=== PATIENT | male | born 1990 | race Caucasian/White ===

== ENCOUNTER → 2021-08-17 | Outpatient (CLI) | payer OTHER ==
[~2021-08-17] MED LIST: CATHETER FLUSH 10 ML SYR IVP PRN
--- NOTE | 2021-08-17 14:55 | Diagnostic Imaging Report ---
INDICATION: Right upper quadrant abdominal pain. COMPARISON: None. RADIOPHARMACEUTICAL: 5.39 mCi technetium 99 M Choletec IV. FINDINGS: Tracer activity seen within the liver, gallbladder, bile ducts and bowel is normal. There is no bile duct obstruction. The gallbladder ejection fraction is normal at 39%. IMPRESSION: Negative HIDA scan. Dictated by: Dictated on workstation # [id number]
== END ==
LOC: CARD 12:00
PROVIDERS: ATTEND Nurse Practitioner Family
DX: R10.11 Right upper quadrant pain (principal)
CPT/HCPCS: 78227; A9537

== ENCOUNTER 2022-05-27 06:58 | Emergency (ER) | payer OTHER ==
[~2022-05-27] VITALS: Ht 180.3 cm; Wt 79.4 kg
[2022-05-27 07:09] VITALS: BP 100/81
[2022-05-27] MEDS ORDERED: CLIN-144 PO (07:14)
--- NOTE | 2022-05-27 07:14 | ED EENT ---
History of Present Illness General Chief Complaint: Dental Problems/Pain Stated Complaint: TOOTHACHE History of Present Illness Date Seen by Provider: May 27, 2022 Time Seen by Provider: 07:02 Initial Comments 31-year-old male with chronic tooth pain, is here with complaints of left lower molar dental cavity, which is causing him severe pain. This has been going on for the past 3 years but patient states that he is afraid to see a dentist. Denies fever, facial numbness, facial swelling, drooling. Patient states that it hurts to drink or eat cold food. Allergies and Home Medications Allergies Coded Allergies: Penicillins (Unverified Allergy, Unknown, 08/17/21) amoxicillin (Unverified Allergy, Unknown, 08/17/21) Patient Home Medication List Home Medication List Reviewed: Yes Review of Systems Review of Systems Constitutional: no symptoms reported Eyes: No Symptoms Reported Ears: No Symptoms Reported Nose: no symptoms reported Mouth: see HPI, other Throat: no symptoms reported Respiratory: no symptoms reported Cardiovascular: no symptoms reported Gastrointestinal: no symptoms reported Musculoskeletal: no symptoms reported Skin: no symptoms reported Neurological: No Symptoms Reported Hematologic/Lymphatic: No Symptoms Reported Immunological/Allergic: no symptoms reported Past Duuwoov-Paypbc-Jljlyh Hx Patient Social History Tobacco Use?: Yes Tobacco type used: Cigarettes Smoking Status: Current Everyday Smoker Substance use?: Yes Substance type: Marijuana Alcohol Use?: No Pt feels they are or have been: No Past Medical History Surgery/Hospitalization HX: Denies Physical Exam Height, Weight, BMI Height: '" Weight: lbs. oz. kg; BMI Method: General Appearance: WD/WN, mild distress Nose: normal inspection Mouth/Throat: dental tenderness (Left lower molar cavity present. Poor oral h ygiene) Neck: non-tender, full range of motion, supple Neurologic/Psychiatric: alert, oriented x 3 Skin: normal color Progress/Results/Core Measures Progress Progress Note : Progress Note 1. DENTAL CAVITY: - Clindamycin prescription for 7 days - Advised pt to follow up with dentist HEIDI - Toradol injection in ER - Advised good oral hygiene including flossing and mouthwash and brushing after every meal Departure Impression Primary Impression: Dental caries Disposition: 01 HOME, SELF-CARE Condition: Stable Departure-Patient Inst. Patient Instructions: Dental Pain, Tooth Decay, Adult (DC) Add. Discharge Instructions: - Clindamycin prescription for 7 days - Advised pt to follow up with dentist HEIDI - Advised good oral hygiene including flossing and mouthwash and brushing after every meal All discharge instructions reviewed with patient and/or family. Voiced understanding. Scripts Clindamycin HCl (Clindamycin HCl) 300 Mg Capsule 600 MG PO Q12H for 7 Days, #14 CAP Prov: IMRA MAZARIEGOS MD 05/27/22 IRMA MAZARIEGOS MD May 27, 2022 07:14
[2022-05-27] MEDS ORDERED: KETOROLAC 30 MG/ML VIAL IM ONE (07:15)
== END 2022-05-27 07:20 | disposition home or self-care (01) ==
LOC: EDUNIT# 06:58 → ER FS 07:00
DX: K02.9 Dental caries, unspecified (principal); F17.210 Nicotine dependence, cigarettes, uncomplicated; Z88.0 Allergy status to penicillin; Z28.310 Unvaccinated for COVID-19
CPT/HCPCS: 99284